=== PATIENT | male | born 1985 | race Two or more races ===

== ENCOUNTER 2019-03-04 23:42 | Emergency (ER) | payer OTHER ==
[~2019-03-04] VITALS: Ht 177.8 cm; Wt 95.3 kg
[~2019-03-04 23:42] MED LIST: CIPRO100 MG PO; PYRIDIUM100 M1 PO; ULTRACET PO
== END 2019-03-05 10:01 | disposition home or self-care (01) ==
LOC: ER 23:42
DX: N20.1 Calculus of ureter (principal); R10.32 Left lower quadrant pain

== ENCOUNTER 2019-04-14 19:05 | Emergency (ER) | payer OTHER ==
[~2019-04-14] VITALS: Ht 175.3 cm; Wt 97.5 kg
== END 2019-04-14 21:57 | disposition home or self-care (01) ==
LOC: ER 19:05
DX: N20.0 Calculus of kidney (principal); N20.1 Calculus of ureter